=== PATIENT | male | born 1975 | race Caucasian/White ===

== ENCOUNTER 2017-06-17 12:11 | Emergency (ER) | payer MEDICAID ==
[2017-06-17] MEDS ORDERED: Sodium Chloride 0.9% 1,000 ML IV ONE ×2 (12:53→14:06)
[2017-06-17] MEDS ORDERED: Sodium Chloride 0.9% 10 ML Syringe FLUSH PRN (12:53)
--- NOTE | 2017-06-17 12:54 | EDM.PDOC ---
ED HPI GENERAL MEDICAL PROBLEM - General Chief Complaint: General Stated Complaint: MUSCLES PAIN Time Seen by Provider: 06/17/17 12:44 Source of Information: Reports: Patient History Limitations: Reports: No Limitations - History of Present Illness INITIAL COMMENTS - FREE TEXT/NARRATIVE: 41-year-old male presents for evaluation and treatment of muscle pain. Patient reports he's been experiencing pain in his muscles since Monday. He states that his arms and thighs will lock up. He describes a burning pain to his arms and thighs. He denies any joint pain but states when his muscles lock up He cannot move his joints. No fevers, chills, nausea, vomiting or any swelling of the joints. Patient thought that he was dehydrated drink plenty of water and eat some bananas yesterday but continued to have symptoms. Patient recently came to [place] from [place]. He arrived here on Monday. He is currently working as a manager branch. States he is not doing any activity more strenuous than normal. Bilateral Hand Pain Score (Numeric/FACES): 6 - Related Data Allergies Allergy/AdvReac Type Severity Reaction Status Date / Time aspirin Allergy Cannot Verified 06/17/17 12:27 Remember chlorpromazine Allergy Hives Verified 06/17/17 12:27 [From Thorazine] lithium Allergy Nausea and Verified 06/17/17 12:27 Vomiting Penicillins Allergy Cannot Verified 06/17/17 12:27 Remember trazodone Allergy Hives Verified 06/17/17 12:27 Home Meds: Home Meds Divalproex Sodium [Depakote] 500 mg PO BEDTIME 06/17/17 [History] Omeprazole 20 mg PO BEDTIME 06/17/17 [History] QUEtiapine Fumarate [Seroquel] 400 mg PO BEDTIME 06/17/17 [History] hydrOXYzine Pamoate [Vistaril] 100 mg PO BEDTIME 06/17/17 [History] Past Medical History Psychiatric History: Reports: Bipolar Social & Family History - Tobacco Use Smoking Status *Q: Never Smoker - Caffeine Use Caffeine Use: Reports: Soda - Recreational Drug Use Recreational Drug Use: No ED ROS GENERAL - Review of Systems Review Of Systems: See Below Constitutional: Denies: Fever, Chills Respiratory: Denies: Shortness of Breath Cardiovascular: Denies: Chest Pain GI/Abdominal: Denies: Nausea, Vomiting Musculoskeletal: Reports: Muscle Pain (bilateral arms and legs), Muscle Stiffness (bilateral arms and legs) Skin: Denies: Rash ED EXAM, GENERAL - Physical Exam Exam: See Below Exam Limited By: No Limitations General Appearance: Alert, WD/WN, No Apparent Distress Ears: Normal External Exam, Normal Canal, Hearing Grossly Normal, Normal TMs Nose: Normal Inspection Throat/Mouth: Normal Inspection, Normal Voice, No Airway Compromise Neck: Normal Inspection Respiratory/Chest: No Respiratory Distress, Lungs Clear, Normal Breath Sounds Cardiovascular: Normal Peripheral Pulses, Regular Rate, Rhythm, No Murmur Peripheral Pulses: 2+: Radial (L), Radial (R), Posterior Tibial (L), Posterior Tibial (R), Dorsalis Pedis (L), Dorsalis Pedis (R) GI/Abdominal: Soft, Non-Tender Extremities: Normal Inspection, Normal Range of Motion, Other (minor tenderness to palpation to the right forearm) Neurological: Alert, Oriented, Normal Cognition Psychiatric: Normal Affect, Normal Mood Skin Exam: Warm, Dry, Normal Color, No Rash Course - Vital Signs Last Recorded V/S: Last Vital Signs Temp 36.2 C 06/17/17 12:21 Pulse 91 06/17/17 12:21 Resp 20 06/17/17 12:21 BP 96/81 06/17/17 12:21 Pulse Ox 100 06/17/17 12:21 - Orders/Labs/Meds Labs: Laboratory Tests 06/17/17 06/17/17 06/17/17 Range/Units 13:08 13:08 14:40 WBC 4.81 (4.23-9.07) K/mm3 RBC 4.27 L (4.63-6.08) M/mm3 Hgb 12.9 L (13.7-17.5) gm/L Hct 37.7 L (40.1-51.0) % MCV 88.3 (79.0-92.2) fl MCH 30.2 (25.7-32.2) pg MCHC 34.2 (32.2-35.5) g/dl RDW Std Deviation 45.0 H (35.1-43.9) fL Plt Count 217 (163-337) K/mm3 MPV 10.6 (9.4-12.3) fl Neutrophils % (Manual) 57 (40-60) % Band Neutrophils % 0 (0-10) % Lymphocytes % (Manual) 38 (20-40) % Atypical Lymphs % 0 % Monocytes % (Manual) 2 (2-10) % Eosinophils % (Manual) 3 (0.8-7.0) % Basophils % (Manual) 0 L (0.2-1.2) Platelet Estimate Adequate RBC Morph Comment Normal Sodium 143 (136-145) mEq/L Potassium 4.5 (3.5-5.1) mEq/L Chloride 107 (98-107) mEq/L Carbon Dioxide 25 (21-32) mEq/L Anion Gap 15.5 H (5-15) BUN 12 (7-18) mg/dL Creatinine 1.0 (0.7-1.3) mg/dL Est Cr Clr Drug Dosing 107.78 mL/min Estimated GFR (MDRD) > 60 (>60) mL/min BUN/Creatinine Ratio 12.0 L (14-18) Glucose 91 (74-106) mg/dL Calcium 9.0 (8.5-10.1) mg/dL Magnesium 2.1 (1.8-2.4) mg/dl Total Bilirubin 0.6 (0.2-1.0) mg/dL AST 46 H (15-37) U/L ALT 30 (16-63) U/L Alkaline Phosphatase 76 (46-116) U/L Creatine Kinase 1496 H (39-308) U/L Total Protein 6.4 (6.4-8.2) g/dl Albumin 4.1 (3.4-5.0) g/dl Globulin 2.3 gm/dL Albumin/Globulin Ratio 1.8 (1-2) Urine Color Yellow (Yellow) Urine Appearance Clear (Clear) Urine pH 7.5 (5.0-8.0) Ur Specific [place] 1.015 (1.005-1.030) Urine Protein Negative (Negative) Urine Glucose (UA) Negative (Negative) Urine Ketones 1+ H (Negative) Urine Occult Blood Negative (Negative) Urine Nitrite Negative (Negative) Urine Bilirubin Negative (Negative) Urine Urobilinogen 1.0 (0.2-1.0) Ur Leukocyte Esterase Negative (Negative) Urine RBC 0-5 (0-5) /hpf Urine WBC 0-5 (0-5) /hpf Ur Epithelial Cells 0-5 (0-5) /hpf Urine Bacteria Few (FEW) /hpf Urine Mucus Not seen (FEW) /hpf Meds: Medications Discontinued Medications Generic Name Dose Route Start Last Admin Trade Name Jr PRN Reason Stop Dose Admin Acetaminophen 975 mg 06/17/17 15:35 06/17/17 15:39 Tylenol PO 06/17/17 15:36 975 mg NOW ONE Administration Sodium Chloride 1,000 mls @ 999 mls/hr 06/17/17 12:53 06/17/17 13:14 Normal Saline IV 06/17/17 13:53 999 mls/hr ONETIME ONE Administration Sodium Chloride 1,000 mls @ 999 mls/hr 06/17/17 14:06 06/17/17 14:39 Normal Saline IV 06/17/17 15:06 999 mls/hr ONETIME ONE Administration Sodium Chloride 10 ml 06/17/17 12:53 06/17/17 13:14 Saline Flush FLUSH 10 ml ASDIRECTED PRN Administration Keep Vein Open - Re-Assessments/Exams Free Text/Narrative Re-Assessment/Exam: 06/17/17 15:33 I reviewed the labs with the patient. Order him some IV Toradol for his discomfort. Plan will be to given the second day of fluids and discharge him home. Discharge instructions as documented. Departure - Departure Time of Disposition: 16:01 Disposition: Home, Self-Care 01 Condition: Fair Clinical Impression: Dehydration - Discharge Information Instructions: Dehydration, Adult Referrals: PCP,None [Primary Care Provider] - Elio Morocho [Physician] - Forms: ED Department Discharge Additional Instructions: [id number] Tylenol or Motrin as needed for pain relief. Make sure you drinking plenty of fluids. Drink water, Gatorade and Powerade. Rest. Recommend follow-up with family medic Follow-up within one week for recheck of your symptoms. Here in [place] recommend Dr. Sumner or Dr. Young at the [facility]. Call to schedule an appointment with them. Please return to the ER for symptoms change or worsen.
[2017-06-17] MEDS ORDERED: Acetaminophen 325 MG Tab PO ONE (15:35)
== END 2017-06-17 16:30 | disposition home or self-care (01) ==
LOC: JD.ED 12:11
DX: E86.0 Dehydration (principal); Z88.6 Allergy status to analgesic agent; Z88.8 Allergy status to other drugs, medicaments and biological substances; Z88.0 Allergy status to penicillin
CPT/HCPCS: 36415; 80053; 81001; 82550; 83735; 85025; 96360; 96361; 99283; A9270; J7040; J7050